=== PATIENT | male | born 1965 | race Caucasian/White ===

== ENCOUNTER 2019-09-22 13:03 | Outpatient (CLI) | payer OTHER, SELFPAY ==
--- NOTE | 2019-09-22 13:18 | XR_ITS ---
WS: [id number] SHOULDER LEFT TECHNIQUE: 3 views of the left shoulder CLINICAL INFORMATION: PAIN IN LEFT SHOULDER COMPARISON: None. FINDINGS: Normal acromioclavicular joint. Normal glenohumeral joint. Acromion is normal in appearance. Normal g lenoid. No evidence of acute fracture dislocation. Postoperative changes plate and screw fixation low er cervical spine. XR/XR shoulder LT min 2V* [id number] IMPRESSION: Unremarkable left shoulder.
--- NOTE | 2019-09-22 13:18 | XR_ITS ---
WS: [id number] Humerus LEFT TECHNIQUE: 2 views of the left humerus CLINICAL INFORMATION: PAIN IN LEFT UPPER ARM COMPARISON: None. FINDINGS: Normal left humerus. No acute fracture dislocation. XR/[place] [id number] IMPRESSION: Normal left humerus.
== END 2019-09-22 13:04 | disposition home or self-care (01) ==
LOC: WPI 13:08
PROVIDERS: PCP Family Medicine; Visit Provider Nurse Practitioner Family
DX: M79.622 Pain in left upper arm (principal); M25.512 Pain in left shoulder
CPT/HCPCS: 73030; 73060

== ENCOUNTER 2020-08-26 14:56 | Outpatient (CLI) | payer OTHER, SELFPAY ==
--- NOTE | 2020-08-26 15:15 | MR_ITS ---
WS: [id number] MRI LEFT SHOULDER NONCONTRAST TECHNIQUE: Sagittal T2, coronal T1, T2 and proton density imaging. Axial gradient PDE imaging. CLINICAL INFORMATION: STIFFNESS OF UNSPEC SHOULDER;PAIN LEFT SHOULDER;LTD ROM COMPARISON: None. FINDINGS: Images degraded by patient motion. Moderate degenerative arthritis at the AC joint with synovial thickening. Small amount of edema in th e AC joint. Severe narrowing of the subacromial space. Full-thickness chronic appearing tear of the s upraspinatus with retraction of the supraspinatus to the level of glenohumeral joint. Normal infraspi natus. Normal teres minor. High-grade full-thickness tear involving the subscapularis with T2 signal abnormality. Small biceps tendon in the bicipital groove. Biceps labral anchor appears intact. Tiny intra-articula r biceps tendon likely due to chronic tear. Glenoid labrum appears grossly intact. MR/MR shoulder LT wo con* [id number] IMPRESSION: 1. Moderate degenerative arthritis AC joint with edema and synovial thickening . 2. Severe narrowing of the subacromial space with full-thickness supraspinatus tear. Tendon retraction to the level of the glenohumeral joint. 3. High-grade tear involving the subscapularis tendon. 4. Tiny biceps tendon within the bicipital groove. Diminutive intra-articular biceps tendon. Biceps labral anchor appears intact. 5. Glenoid labrum appears grossly intact.
== END 2020-08-26 14:57 | disposition home or self-care (01) ==
PROVIDERS: PCP Family Medicine; Visit Provider Nurse Practitioner Family
DX: M25.619 Stiffness of unspecified shoulder, not elsewhere classified (principal); M25.512 Pain in left shoulder; M19.012 Primary osteoarthritis, left shoulder
CPT/HCPCS: 73221

== ENCOUNTER 2021-10-06 10:03 | Outpatient (CLI) | payer OTHER, SELFPAY ==
--- NOTE | 2021-10-06 10:17 | XR_ITS ---
WS: [id number] XR knee LT 1-2V [id number] REASON FOR EXAM: PAIN IN L KNEE FINDINGS: No fracture or focal bone lesion. Minimal narrowing of the the medial and lateral knee joint spaces in the patellofemoral joint space. Mild subchondral sclerosis in the subarticular medial and lateral tibia and patella. No soft tissue abnormality. XR/XR knee LT 1-2V [id number] IMPRESSION: Minimal osteoarthritis.
== END 2021-10-06 10:04 | disposition home or self-care (01) ==
PROVIDERS: PCP Family Medicine; Visit Provider Nurse Practitioner Family
DX: M17.12 Unilateral primary osteoarthritis, left knee (principal); M25.562 Pain in left knee
CPT/HCPCS: 73560

== ENCOUNTER 2022-11-16 14:15 | Outpatient (CLI) | payer OTHER, SELFPAY ==
--- NOTE | 2022-11-16 14:27 | MM_ITS ---
WS: [id number] BILATERAL 3D TOMOSYNTHESIS DIGITAL DIAGNOSTIC MAMMOGRAPHY WITH CAD CLINICAL INFORMATION: RT BR PAIN HISTORY: Right breast palpable nodule pain TECHNIQUE: Bilateral CC, MLO, and ML views. FINDINGS: Fatty replaced breasts bilaterally. Small amount of parenchymal tissue in the area palpable concern r ight subareolar. Tiny amount of subareolar left parenchymal tissue. A few tiny incidental punctate ca lcifications. No other suspicious findings. Ultrasound described below. ULTRASOUND BREAST RIGHT TECHNIQUE: Ultrasound right breast focused area of concern. CLINICAL INFORMATION: RT BR PAIN FINDINGS: Ultrasound right breast in the area of palpable concern deep to the right nipple. Small focus of shad owing parenchymal tissue compatible with gynecomastia in the area of concern measuring approximately 6.8 x 7.2 mm. No suspicious cystic or solid lesions. Comparison left breast is normal in appearance. Findings have a benign appearance. IMPRESSION: MM/[place] [id number] BI-RADS: 2-Benign FOLLOW UP: See Report
== END 2022-11-16 14:16 | disposition home or self-care (01) ==
PROVIDERS: PCP Family Medicine; Visit Provider Nurse Practitioner Family
DX: N64.4 Mastodynia (principal)
CPT/HCPCS: 76642; 77062; G0279